=== PATIENT | male | born 1980 | race Caucasian/White ===

== ENCOUNTER 2024-11-12 14:10 | Emergency (ER) | payer MEDICAID ==
[~2024-11-12] VITALS: Ht 180.3 cm; Wt 104.7 kg
[2024-11-12] MEDS ORDERED: NITROGLYCERIN 0.4 MG SUBL SL PRN (14:15)
[2024-11-12 14:26] LABS: BASOPHILS 0.6 % (0-2); EOSINOPHILS 0.6 % (0-6); HEMATOCRIT 42.5 % (35.0-50.0); HEMOGLOBIN 14.4 g/dL (12.0-18.0); LYMPHOCYTES 14.8 % (24-44); MCV 88.2 fl (81-99); MONOCYTES 6.7 % (0-12); NEUTROPHILS 77.3 % (39-80); PLATELET COUNT 375 K/uL (140-440); RBC 4.82 M/ul (4.3-5.7)
[2024-11-12 14:39] LABS: INR 0.97 (0.80-1.30); PROTIME 12.8 Sec (11.2-14.2)
[2024-11-12 14:45] LABS: ALBUMIN 3.8 g/dL (3.4-5.0); ANION GAP 10.3 (7-21); BILIRUBIN, TOTAL 0.3 mg/dL (0.2-1.0); BUN/CREATININE RATIO 16.03 (6.0-28.6); CALCIUM 9.2 mg/dL (8.5-10.1); CREATININE, SERUM 1.06 mg/dL (0.70-1.30); POTASSIUM 4.3 mmol/L (3.5-5.1); PROTEIN, TOTAL 7.6 g/dL (6.4-8.2)
[2024-11-12 15:43] VITALS: BP 141/88
--- OUTSIDE RECORDS SUMMARY | 2024-11-12 16:11 | XMS ---
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 Care Guidelines exist for the following facilities: [facility] ( 01/13/2019 ) [place] VISIT COUNT (12 MO.) [address] TOTAL 3 NOTE: Visits indicate total known visits. ED/UCC VISIT TRACKING (12 MO.) 11/12/2024 14:11 [facility] [place] TYPE: Emergency COMPLAINT: - CHEST PAIN 10/31/2024 01:10 [facility] [place] TYPE: Emergency DIAGNOSES: - Blister (nonthermal), left foot, initial encounter - L FOOT SORE 01/14/2024 16:07 [facility] [place] TYPE: Emergency DIAGNOSES: - Anxiety disorder, unspecified - Atherosclerotic heart disease of [place] coronary artery without angina pectoris - Chronic combined systolic (congestive) and diastolic (congestive) heart failure - Hemoptysis - Other fatigue - Other specified respiratory disorders - Other viral agents as the cause of diseases classified elsewhere - Other viral infections of unspecified site - coughing up blood INPATIENT VISIT TRACKING (12 MO.) No inpatient visits to display in this time frame [email or web address]
--- NOTE | 2024-11-12 22:56 | EKG ---
[facility] [address] [facility] [place] [address] Signed Normal sinus rhythm Right bundle branch block Inferior infarct , age undetermined Abnormal ECG No previous ECGs available Confirmed by Parviz Napier MD () on 11/12/2024 10:56:06 PM Electronically Signed By: PARVIZ NAPIER MD 11/12/24 2256 PATIENT NAME: RADHATASH Electrocardiogram DATE OF : 82 PHYSICIAN: PARVIZ NAPIER MD REPORT #: [id number] REPORT IS CONFIDENTIAL AND NOT TO BE RELEASED WITHOUT AUTHORIZATION
== END 2024-11-12 15:41 | disposition home or self-care (01) ==
LOC: ED 14:10
PROVIDERS: Emergency Medicine
DX: R07.89 Other chest pain (principal); I50.9 Heart failure, unspecified; I25.2 Old myocardial infarction; Z95.2 Presence of prosthetic heart valve
CPT/HCPCS: 36415; 71045; 80053; 83735; 84484; 85025; 85610; 93005; 93010; 99285-25